=== PATIENT | male | born 1965 | race American Indian/Alaskan Native ===

== ENCOUNTER 2018-09-09 09:45 | Outpatient (CLI) | payer OTHER | END 2018-09-09 09:46 | disposition home or self-care (01) | LOC: C.LAB 09:45 | DX: I73.9 Peripheral vascular disease, unspecified (principal) ==

== ENCOUNTER 2018-09-16 08:56 | Outpatient (CLI) | payer OTHER | END 2018-09-16 08:57 | disposition home or self-care (01) | LOC: C.VASC 08:57 | DX: I73.9 Peripheral vascular disease, unspecified (principal); R60.0 Localized edema ==